=== PATIENT | female | born 1975 | race Caucasian/White ===

== ENCOUNTER 2017-09-25 16:03 | Emergency (ER) | payer OTHER ==
[~2017-09-25] VITALS: Ht 170.2 cm; Wt 85.7 kg
[~2017-09-25 16:03] MED LIST: AZITHROMYCIN250 MG PO; MACROBID100 MG PO; OVIDREL250 MCG/0. SQ
[2017-09-25 17:28] LABS: HEMATOCRIT 42.9 % (36.0-46.0); MCH 33.1 PG (29.0-34.0); MCV 94.7 FL (83-99); RBC DIS.WIDTH-CV 12.4 % (11.8-14.6); RBC DIS.WIDTH-SD 43.1 % (39-53); RED BLOOD COUNT 4.53 M/uL (3.80-5.20); WHITE BLOOD COUNT 6.4 K/uL (4.1-10.2)
[2017-09-25 17:35] LABS: CHLORIDE 107 mEq/L (99-109); POTASSIUM 4.1 mEq/L (3.7-5.4); SODIUM 139 mEq/L (136-147)
[2017-09-25 17:37] LABS: GLUCOSE 72 mg/dL (70-99)
[2017-09-25 17:41] LABS: CREATININE 0.7 mg/dL (0.6-1.3); GFR ESTIMATE (CALCULATED) > 59 mL/min/
[2017-09-25 17:42] LABS: UREA NITROGEN (BUN) 5 mg/dL (9-23)
[2017-09-25 18:02] LABS: PLAT.SUFFICIENCY ADEQUATE; PLATELET COUNT 289 K/uL (156-360)
[2017-09-25] MEDS ORDERED: AUGMENTIN875 MG PO (19:25)
[2017-09-25 20:11] VITALS: BP 148/89
== END 2017-09-25 20:12 | disposition home or self-care (01) ==
LOC: EME 16:03
PROVIDERS: Physician Assistant
DX: J32.9 Chronic sinusitis, unspecified (principal); L03.211 Cellulitis of face; I10 Essential (primary) hypertension; J45.909 Unspecified asthma, uncomplicated; F17.200 Nicotine dependence, unspecified, uncomplicated; Z88.1 Allergy status to other antibiotic agents
CPT/HCPCS: 70487; 80048; 85027; 87040; 99281; 99284; J0295; J1885; J7050